=== PATIENT | female | born 1935 | race Caucasian/White ===

== ENCOUNTER → 2016-10-01 | Outpatient (CLI) | payer BC ==
[~2016-10-01] MED LIST: ANT125 PO; ASPCH81 PO; ENAL10TA88 PO; IBUP-1050 PO; PROP10TA7 PO; SYN100 PO
== END | disposition home or self-care (01) ==
LOC: C.PAPS 10:00
PROVIDERS: ATTEND Obstetrics & Gynecology
DX: Z01.419 Encounter for gynecological examination (general) (routine) without abnormal findings (principal)

== ENCOUNTER → 2017-05-21 | Outpatient (CLI) | payer BC ==
[2017-05-21 10:55] LABS: BASO % 0.4 %; BASO ABS # 0.02 K/uL (0-0.2); COMPLETE YES; EOS % 3.9 %; HEMATOCRIT 36.6 % (37-47); IG% 0.2 %; LYMPH ABS # 1.09 K/uL (1.2-3.4); MEAN CELL VOLUME 89.9 fL (80-100); MEAN CORPUSCULAR HEMOGLOBIN 30.5 pg (25-34); MEAN CORPUSCULAR HGB CONC 33.9 g/dl (32-36); MEAN PLATELET VOLUME 10.4 fL (7.4-10.4); MONO % 9.2 %; NEUT % 66.3 %; PLATELET COUNT 234 K/uL (130-400); RED BLOOD COUNT 4.07 M/uL (4.2-5.4); WHITE BLOOD COUNT 5.44 K/uL (4.8-10.8)
[2017-05-21 11:03] LABS: MANUAL MICROSCOPIC REQUIRED? NO; REVIEW REQ? NO; URINE APPEARANCE CLEAR (CLEAR); URINE BILIRUBIN NEG (NEG); URINE COLOR YELLOW; URINE EPITHELIAL CELL AUTO 20-30 /lpf (0-5); URINE NITRITE NEG (NEG); UROBILINOGEN NEG (NEG)
[2017-05-21 11:26] LABS: BLOOD UREA NITROGEN 16 mg/dl (7-18); BUN/CREATININE RATIO 13.6 (10-20); CALCIUM 9.1 mg/dl (8.5-10.1); CARBON DIOXIDE 26 mmol/L (21-32); CHLORIDE 107 mmol/L (98-107); GLUCOSE 114 mg/dl (70-99); POTASSIUM 3.8 mmol/L (3.5-5.1); SODIUM 139 mmol/L (136-145)
[2017-05-21 11:36] LABS: CHOLESTEROL 217 mg/dl (0-200); CHOLESTEROL/HDL RATIO 3.3; HDL CHOLESTEROL 65 mg/dl; LDL CHOLESTEROL CALCULATED 131 mg/dl; THYROID STIMULATING HORMONE 0.456 uIu/ml (0.300-4.500); TRIGLYCERIDES 103 mg/dl (0-150); VERY LOW DENSITY LIPOPROT CALC 21 mg/dl
[2017-05-21 11:52] LABS: ESTIMATED AVERAGE GLUCOSE 123 mg/dl; HA1C FLAG Normal (Normal)
--- NOTE | 2017-06-02 06:09 | CODING QUERY MEDICAL NECESSITY ---
SUPPORTING DIAGNOSIS NEEDED Dr. Stanton, A supporting diagnosis is required for the test/procedure performed on this patient in order for us to be reimbursed by the patient's insurance. Please provide a supporting diagnosis for the following test/procedure listed below next to the test name along with your signature. *If there is no additional diagnosis for this patient that would support the following test/procedure please document that below next to the test/procedure. Test(s)/Procedure(s) that require a supporting diagnosis: * 53269 GLYCATED HEMOGLOBIN DIAGNOSIS: DATE OF SERVICE: 05/21/17 Provider Signature: Date: Thank you Royce Orosco [facility] Information Management Once completed, please kindly fax back to [phone] For questions please call [phone]
== END | disposition home or self-care (01) ==
LOC: C.LABBC 08:38
PROVIDERS: ATTEND Internal Medicine
DX: I10 Essential (primary) hypertension (principal); R73.9 Hyperglycemia, unspecified

== ENCOUNTER → 2017-07-06 | Outpatient (CLI) | payer BC ==
--- NOTE | 2017-07-06 15:36 | MAMMOGRAPHY REPORT ---
BILATERAL DIGITAL SCREENING MAMMOGRAM WITH CAD: 07/06/2017 CLINICAL HISTORY: Routine screening examination. TECHNIQUE: Bilateral CC, MLO and repeat right MLO views were obtained. Current study was also evalua miki with a Computer Aided Detection (CAD) system. COMPARISON: Comparison is made to exams dated: 07/02/2016 mammogram, 06/28/2015 mammogram, 4 mammogram, 06/23/2013 mammogram, 06/22/2012 mammogram, and 05/26/2011 mammogram - [facility]. BREAST COMPOSITION: The tissue of both breasts is almost entirely fatty. FINDINGS: There are minimal vascular calcifications in both breasts. No suspicious mass, senior principal architect ural distortion or cluster of microcalcifications is seen. IMPRESSION: ACR BI-RADS CATEGORY 2: BENIGN There is no mammographic evidence of malignancy. A 1 year screening mammogram is recommended. The pa tient will receive written notification of the results. Approximately 10% of breast cancers are not detected with mammography. A negative mammographic report should not delay biopsy if a clinically suggestive mass is present. Noemi Moon M.D. ay/:07/06/2017 13:34:37 Crew Team Member: Esperanza FALCON(R)(M), [facility] letter sent: Normal 1/2 BI-RADS Code: ACR BI-RADS Category 2: Benign
== END | disposition home or self-care (01) ==
LOC: C.MAMM 10:46
PROVIDERS: ATTEND Obstetrics & Gynecology
DX: Z12.31 Encounter for screening mammogram for malignant neoplasm of breast (principal)

== ENCOUNTER → 2018-01-08 | Outpatient (CLI) | payer BC ==
[2018-01-08 13:45] LABS: BASO % 0.2 %; BASO ABS # 0.01 K/uL (0-0.2); EOS % 4.2 %; EOS ABS # 0.23 K/uL (0-0.5); HEMATOCRIT 38.8 % (37-47); HEMOGLOBIN 13.2 g/dL (12.0-16.0); IG# 0.01 K/uL (0.00-0.02); LYMPH % 21.4 %; LYMPH ABS # 1.17 K/uL (1.2-3.4); MEAN CELL VOLUME 90.7 fL (80-100); MEAN CORPUSCULAR HEMOGLOBIN 30.8 pg (25-34); MEAN PLATELET VOLUME 11.2 fL (7.4-10.4); MONO % 8.6 %; MONO ABS # 0.47 K/uL (0.11-0.59); NEUT % 65.4 %; NEUT ABS # 3.57 K/uL (1.4-6.5); PLATELET COUNT 247 K/uL (130-400); RED CELL DISTRIBUTION WIDTH SD 42.8 fL (36.4-46.3); WHITE BLOOD COUNT 5.46 K/uL (4.8-10.8)
[2018-01-08 14:02] LABS: HEMOGLOBIN A1C 5.7 % (4.5-5.6)
[2018-01-08 15:05] LABS: BLOOD UREA NITROGEN 25 mg/dl (7-18); CALCIUM 9.2 mg/dl (8.5-10.1); CARBON DIOXIDE 28 mmol/L (21-32); CREATININE 1.34 mg/dl (0.60-1.20); GLUCOSE 90 mg/dl (70-99); SODIUM 137 mmol/L (136-145)
== END | disposition home or self-care (01) ==
LOC: C.LABBC 10:41
PROVIDERS: ATTEND Internal Medicine
DX: I10 Essential (primary) hypertension (principal)

== ENCOUNTER 2024-09-19 09:38 | Inpatient (IN) ==
--- NOTE | 2024-09-19 09:49 | Emergency Department Note ---
Impression & Plan COVID-19, Weakness, Elevated troponin ED Provider Note Provider: Yagn King MD CHIEF COMPLAINT: Weakness, dizziness HISTORY OF PRESENT ILLNESS: Patient is a 89-year-old female past medical history of Parkinson's disease, CKD, hypothyroidism, and hypertension presenting here today via ambulance from her home. Lives with her son according to EMS. Last several days has been a bit weak but could not get out of recliner this morning. No falls reported. Patient reporting some dizziness but no significant headache or chest pain or abdominal pain. No nausea vomiting or diarrhea reported. Maybe some cough and cold symptoms reported. Patient quite drowsy on exam. PAST MEDICAL HISTORY: As noted above MEDICATIONS: Reviewed home medications SOCIAL HISTORY: Lives at home with son PHYSICAL EXAM: GENERAL: resting with eyes closed alert to verbal stimuli and oriented in no acute distress on stretcher Head: normocephalic and atraumatic EYES: No injection, discharge or icterus. PERRL, EOMI. NECK: Trachea midline. ENT: Mucous membranes pink and moist. LUNGS: Airway patent. No retractions. Breath sounds clear HEART: Regular rate and rhythm. No chest wall tenderness ABDOMEN: Soft and non-tender, without guarding or rebound. SKIN: Acyanotic, warm, dry, without rashes EXTREMITIES: Patient with 1+ lower extremity edema without significant erythema. No significant swelling of the upper extremities. NEUROLOGICAL: No focal deficits moves extremities to command. No aphasia. No facial droop or slurred speech. Normal strength and tone in the extremities. Sensation to gross touch normal. EK beats. Normal sinus rhythm. No PVC or PAC with left bundle branch block and QTc of 478. No significant acute ST segment elevation given left bundle branch block limitations. CONTINUOUS CARDIAC MONITORING: was ordered and showed a heart rate of bpm in Patient's laboratory studies and imaging reviewed. Differential includes Infection, dehydration, metabolic abnormality, hypo/hyperglycemia, electrolyte disturbance, anemia, hypoxia, cardiac sources, intracerebral event, toxicologic, neurologic, as well as other pathologies. IMPRESSION/MEDICAL DECISION MAKING: Patient appears significantly generally weak without focality. Some cold symptoms reported. Not hypoxic here. Given her age and the drowsiness will obtain a head CT as well as basic blood work and respiratory viral panel. Blood work here without significant leukocytosis. Stable mild anemia. Normal platelet count. No severe electrolyte abnormality with creatinine 1.25. Seems chronic in comparison to previous. Procalcitonin not significantly elevated. No transaminitis. Troponin is elevated at ~370. No priors for comparison. Unsure if this is chronic or demand with the patient denies chest pain. 1 view chest x-ray completed per my review and radiology without evidence of pneumonia, pneumothorax, or significant pulmonary edema. CT of the head here without acute intracranial bleed notable. Urinalysis without findings of infection. Respiratory viral panel shows positive COVID test. Likely explains much of her weakness and symptoms. Son later arrives. Updated. Patient without significant cardiac history reported it is reported be on low-dose aspirin. Evidently has had some slight cough and cold for a few days. Generally weak today. Patient has had COVID before but without hospitalization. Discussed with them staying for further supportive care. Not hypoxic at this point. Repeat troponin is pending. Discussed with the hospitalist team. DIAGNOSIS: Weakness, dizziness, elevated troponin, COVID-19 DISPOSITION: Hospitalist will evaluate Patient was agreeable with this plan. Past Med/Surg History Problem List (Updated 09/19/24 @ 12:01 by Yang King M.D.) Elevated troponin (Acute) Weakness (Acute) COVID-19 (Acute) Parkinsonism CKD (chronic kidney disease) stage 3, GFR 30-59 ml/min Pre-diabetes Anxiety Vitamin B 12 deficiency Vitamin D deficiency Essential tremor Impaired functional mobility, balance, gait, and endurance Lumbago with sciatica, left side Encounter for annual routine gynecological examination Benign essential tremor (Chronic) Acid reflux (Chronic) Back pain with sciatica (Chronic) Depression with anxiety (Chronic) Generalized osteoarthritis of multiple sites (Chronic) Hyperglycemia (Chronic) Hypertension (Chronic) Hypothyroidism (Chronic) Left bundle branch block (Chronic) Osteopenia (Chronic) 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) Medical History (Updated 09/19/24 @ 12:01 by Yang King M.D.) Skin cancer Surgical History History of cardiac cath 2015 Fracture, humerus 2015 - repair, plates/screws Hx of tonsillectomy Family History Father Coronary heart disease Stroke Dyslipidemia Hypertension Mother Cancer Social History Smoking Status: Never smoker Second Hand Exposure: No; Hx Alcohol Use: Yes Alcohol type: wine Alcohol Intake Frequency: 2-4 x/Month Hx Substance Use: No Preferred Language: Estonian Visual Impairment: Diminished Hearing Ability: Normal marital status: Current Living Situation: Spouse current occupational status: retired Feels Safe at Home: Yes Childhood Exposure to Second-Hand Smoke: No caffeine: Yes Dental Care, Regularly: Yes Physical Activity Frequency Comment: active lifestyle Seatbelt Use: always Sunscreen Use: No Do you think of yourself as: straight/heterosexual Allergies Allergies Allergy/AdvReac Type Severity Reaction Status Date / Time Sulfa (Sulfonamide Allergy Unknown RASH Verified 09/05/24 09:49 Antibiotics) codeine AdvReac Mild VOMITING Verified 09/05/24 09:49 Lobster AdvReac Unknown NAUSEA Uncoded 09/05/24 09:49 Home Meds Home Medications Medication Instructions Recorded Confirmed aspirin 81 mg tablet 81 mg PO DAILY 05/09/19 09/19/24 cholecalciferol (vitamin D3) 50 50 mcg PO UD 09/19/24 09/19/24 mcg (2,000 unit) capsule levothyroxine 75 mcg tablet 75 mcg PO UD 09/19/24 09/19/24 Previous Rx's Medication Instructions Recorded celecoxib 200 mg capsule (Celebrex) 200 mg PO DAILY #90 caps 02/05/24 hydrochlorothiazide 12.5 mg tablet 12.5 mg PO DAILY #90 tabs 05/18/24 pantoprazole 20 mg tablet,delayed 20 mg PO DAILY #90 tabs 05/25/24 release primidone 50 mg tablet 50 mg PO BID 90 days #180 tabs 08/08/24 enalapril maleate 5 mg tablet 5 mg PO DAILY #90 tabs 08/22/24 Results & Data (ED) Vital Signs Vital Signs - 24 hr 09/19/24 09:45 09/19/24 10:09 09/19/24 10:24 Temperature 36.5 C Temperature Source Oral Pulse Rate 66 60 60 Pulse Rate [Left Apical] Pulse Rate from SpO2 Sensor 61 60 Respiratory Rate 16 15 12 Respiratory Effort / Characteristics Non-Labored Spontaneous Respiratory Depth Normal Respiratory Pattern Agonal Blood Pressure 168/98 H Blood Pressure [Right Arm] Blood Pressure Mean 121 Blood Pressure Mean [Right Arm] Blood Pressure Position [Right Arm] Pulse Oximetry 99 97 98 Oxygen Delivery Method Room Air Sepsis Recent Fever Within 48 Hours No Sepsis New/Unexplained Change in Mental Status N/A Sepsis Action Taken by Nursing No Action Required 09/19/24 10:38 09/19/24 10:39 09/19/24 10:39 Temperature Temperature Source Pulse Rate 61 60 Pulse Rate [Left Apical] Pulse Rate from SpO2 Sensor 60 Respiratory Rate 15 Respiratory Effort / Characteristics Respiratory Depth Respiratory Pattern Blood Pressure 168/69 H Blood Pressure [Right Arm] Blood Pressure Mean 126 Blood Pressure Mean [Right Arm] Blood Pressure Position [Right Arm] Pulse Oximetry 99 Oxygen Delivery Method Sepsis Recent Fever Within 48 Hours Sepsis New/Unexplained Change in Mental Status Sepsis Action Taken by Nursing 09/19/24 11:00 09/19/24 11:12 09/19/24 11:15 Temperature Temperature Source Pulse Rate 61 Pulse Rate [Left Apical] 60 Pulse Rate from SpO2 Sensor Respiratory Rate 15 19 Respiratory Effort / Characteristics Non-Labored Spontaneous Respiratory Depth Normal Respiratory Pattern Regular Blood Pressure Blood Pressure [Right Arm] 166/62 H Blood Pressure Mean Blood Pressure Mean [Right Arm] 96 Blood Pressure Position [Right Arm] Semi-fowlers Pulse Oximetry 99 98 Oxygen Delivery Method Room Air Room Air Sepsis Recent Fever Within 48 Hours Sepsis New/Unexplained Change in Mental Status Sepsis Action Taken by Nursing 09/19/24 11:21 09/19/24 11:30 09/19/24 11:36 Temperature Temperature Source Pulse Rate 56 L 57 L Pulse Rate [Left Apical] Pulse Rate from SpO2 Sensor Respiratory Rate 12 12 Respiratory Effort / Characteristics Respiratory Depth Respiratory Pattern Blood Pressure 153/67 H Blood Pressure [Right Arm] Blood Pressure Mean 117 Blood Pressure Mean [Right Arm] Blood Pressure Position [Right Arm] Pulse Oximetry 98 98 Oxygen Delivery Method Room Air Room Air Sepsis Recent Fever Within 48 Hours Sepsis New/Unexplained Change in Mental Status Sepsis Action Taken by Nursing 09/19/24 11:42 09/19/24 12:00 09/19/24 12:12 Temperature Temperature Source Pulse Rate 63 57 L 59 L Pulse Rate [Left Apical] Pulse Rate from SpO2 Sensor Respiratory Rate 18 16 14 Respiratory Effort / Characteristics Respiratory Depth Respiratory Pattern Blood Pressure 153/64 H Blood Pressure [Right Arm] Blood Pressure Mean 93 Blood Pressure Mean [Right Arm] Blood Pressure Position [Right Arm] Pulse Oximetry 99 97 98 Oxygen Delivery Method Room Air Room Air Room Air Sepsis Recent Fever Within 48 Hours Sepsis New/Unexplained Change in Mental Status Sepsis Action Taken by Nursing Laboratory Data 09/19/24 09:50 09/19/24 09:50 Lab Results 09/19/24 09/19/24 Range/Units 09:50 10:40 WBC 6.80 (4.8-10.8) K/ul RBC 3.78 L (4.20-5.40) M/uL Hgb 11.6 L (12.0-16.0) g/dl Hct 33.7 L (37.0-47.0) % MCV 89.2 (80.0-100.0) fL MCH 30.7 (25.0-34.0) pg MCHC 34.4 (32.0-36.0) g/dL RDW Std Deviation 41.3 (36.4-46.3) fL RDW Coeff of Caesar 12.6 (11.5-14.5) % Plt Count 207 (130-400) K/uL MPV 10.8 (9.4-12.4) fL Immature Gran % (Auto) 0.3 % Neut % (Auto) 76.6 % Lymph % (Auto) 11.3 % [place] % (Auto) 9.3 % Eos % (Auto) 2.2 % Baso % (Auto) 0.3 % Neut # (Auto) 5.21 (1.40-6.50) K/uL Lymph # (Auto) 0.77 L (1.20-3.40) K/uL Cascade # (Auto) 0.63 H (0.11-0.59) K/uL Eos # (Auto) 0.15 (0.00-0.50) K/uL Baso # (Auto) 0.02 (0.00-0.20) K/uL Immature Gran # (Auto) 0.02 (0.01-0.20) K/uL PT 10.7 (9.0-12.0) Seconds INR 1.0 (0.9-1.1) Sodium 138 (136-145) mmol/L Potassium 4.0 (3.5-5.1) mmol/L Chloride 104 (98-107) mmol/L Carbon Dioxide 26 (21-32) mmol/L Anion Gap 8 (3-11) BUN 25 H (6-23) mg/dl Creatinine 1.25 H (0.6-1.2) mg/dl Est Cr Clr Drug Dosing 27.9 ml/min eGFR 41.46 BUN/Creatinine Ratio 20.0 (10-20) Glucose 117 H (70-99(Fasting)) mg/dl Calcium 9.5 (8.6-10.3) mg/dl Magnesium 2.0 (1.7-2.4) mg/dl Total Bilirubin 0.4 (0.2-1.0) mg/dl AST 16 (13-39) U/L ALT 10 (7-52) U/L Alkaline Phosphatase 103 (34-104) U/L Troponin I High Sens 369.4 H* (0-14) pg/ml Total Protein 7.4 (6.0-8.3) gm/dl Albumin 4.2 (3.4-5.0) gm/dl Globulin 3.2 (2.5-4.0) gm/dl Albumin/Globulin Ratio 1.3 (0.9-2) Procalcitonin 0.11 (0-0.5) ng/ml TSH 8.061 H (0.300-4.500) uIu/ml Free T4 0.79 (0.61-1.60) ng/dl Urine Color Yellow Urine Appearance Clear (Clear) Urine pH 5.5 (4.5-7.5) Ur Specific [place] 1.021 (1.000-1.030) Urine Protein Negative (Negative) Urine Glucose (UA) Negative (Negative) Urine Ketones Negative (Negative) Urine Blood Negative (Negative) Urine Nitrite Negative (Negative) Urine Bilirubin Negative (Negative) Urine Urobilinogen Negative (Negative) Ur Leukocyte Esterase Negative (Negative) Adenovirus (PCR) Not Detected (NotDetected) B. pertussis DNA (PCR) Not Detected (NotDetected) B.parapertussis DNA PCR Not Detected (NotDetected) C. pneumoniae DNA (PCR) Not Detected (NotDetected) Coronavirus OC43 (PCR) Not Detected (NotDetected) Coronavirus HKU1 (PCR) Not Detected (NotDetected) Coronavirus 229E (PCR) Not Detected (NotDetected) SARS-CoV-2 (PCR) DETECTED A (NotDetected) Coronavirus NL63 (PCR) Not Detected (NotDetected) Human Metapneumovir PCR Not Detected (NotDetected) Influenza Type A (PCR) Not Detected (NotDetected) Influenza Type B (PCR) Not Detected (NotDetected) M. pneumoniae (PCR) Not Detected (NotDetected) Parainfluenza 1 (PCR) Not Detected (NotDetected) Parainfluenza 2 (PCR) Not Detected (NotDetected) Parainfluenza 3 (PCR) Not Detected (NotDetected) Parainfluenza 4 (PCR) Not Detected (NotDetected) RSV (PCR) Not Detected (NotDetected) Entero/Rhino (PCR) Not Detected (NotDetected) Imaging Data Radiologist's Impression: Chest X-Ray 09/19/24 09:45 XR chest 1V portable CLINICAL HISTORY: weakness COMPARISON STUDY: Chest radiograph July 23, 2015. FINDINGS: A proximal right humeral internal fixation is again noted. There is no pneumothorax. Apparent blunting of the left costophrenic angle is likely due to patient rotation. Cardiomegaly is unchanged. There is no evidence for pulmonary edema. Linear right basilar densities represent atelectasis. No consolidation to suggest pneumonia. IMPRESSION: No acute cardiopulmonary findings. ACT 112: Negative or not required by law. Electronically signed by: Brad Green M.D. 09/19/2024 11:[address] 09/19/24 09:45 CT head/brain wo con CLINICAL HISTORY: weak, dizzy Technique: Contiguous axial CT images of the head were acquired from the base of the skull to the vertex without intravenous contrast administration. Images were viewed in brain, subdural and bone windows. Automated dose lowering techniques and/or adjustment according to patient size were utilized for this exam. Comparison: None available at the time of this dictation. Findings: Areas of decreased attenuation are present in the periventricular and subcortical white matter bilaterally consistent with small vessel ischemic disease. Generalized cerebral atrophy with commensurate enlargement of the ventricles, sulci, and cisterns is also present. There is no acute intracranial hemorrhage or evidence of acute territorial infarction. No shift of the midline structures, mass effect, or extra-axial abnormalities are shown. Atherosclerotic calcifications are present in the intracranial segments of the internal carotid arteries. Imaged portions of the paranasal sinuses and mastoid air cells are clear. The orbits appear normal. There are no acute fractures of the calvaria or scalp swelling. Impression: No acute intracranial hemorrhage, no evidence of acute territorial infarction or other acute intracranial disease process. ACT 112: Negative or not required by law. Electronically signed by: Alexi Go M.D. 09/19/2024 10:52 AM Discharge Plan Visit Data Chief Complaint: Illness Stated Complaint: ILLNESS ED Provider: Yang King Discharge Problem: COVID-19, Weakness, Elevated troponin Patient Disposition: Being Evaluated by Hospitalist Forms Stand Alone Forms: My [facility] Prescriptions Prescriptions: No Action hydrochlorothiazide 12.5 mg tablet 12.5 mg PO DAILY Qty: 90 3RF pantoprazole 20 mg tablet,delayed release (DR/EC) 20 mg PO DAILY Qty: 90 3RF enalapril maleate 5 mg tablet 5 mg PO DAILY Qty: 90 3RF aspirin 81 mg tablet 81 mg PO DAILY celecoxib [Celebrex] 200 mg capsule 200 mg PO DAILY Qty: 90 3RF primidone 50 mg tablet 50 mg PO BID 90 Days Qty: 180 3RF levothyroxine 75 mcg tablet 75 mcg PO UD Rx Instructions: 1 tab 4 days and 1/2 tab 3 days cholecalciferol (vitamin D3) 50 mcg (2,000 unit) capsule 50 mcg PO UD Rx Instructions: pt didnt seem to sure if she still takes vitamin D, last filled for 90 day supply on 07/22/24 Referrals Referrals: Taqueria Cazares CRNP [Primary Care Provider] -
[2024-09-19 10:13] LABS: Basophils # (auto) 0.02 K/uL (0.00-0.20); Basophils % (auto) 0.3 %; Eosinophils # (auto) 0.15 K/uL (0.00-0.50); Eosinophils % (auto) 2.2 %; Hematocrit (blood only) 33.7 % (37.0-47.0); Hemoglobin 11.6 g/dl (12.0-16.0); Immature Granulocytes # (auto) 0.02 K/uL (0.01-0.20); Immature Granulocytes % (auto) 0.3 %; Lymphocytes # (auto) 0.77 K/uL (1.20-3.40); Lymphocytes % (auto) 11.3 %; Mean Corpuscular Hemoglobin 30.7 pg (25.0-34.0); Mean Corpuscular Hgb Conc 34.4 g/dL (32.0-36.0); Mean Corpuscular Volume 89.2 fL (80.0-100.0); Mean Platelet Volume 10.8 fL (9.4-12.4); Monocytes # (auto) 0.63 K/uL (0.11-0.59); Monocytes % (auto) 9.3 %; Neutrophils # (auto) 5.21 K/uL (1.40-6.50); Neutrophils % (auto) 76.6 %; Platelet Count 207 K/uL (130-400); RDW Coefficient of Variation 12.6 % (11.5-14.5); RDW Standard Deviation 41.3 fL (36.4-46.3); Red Blood Count 3.78 M/uL (4.20-5.40)
[2024-09-19 10:25] LABS: Albumin Globulin Ratio 1.3 (0.9-2); Albumin Level 4.2 gm/dl (3.4-5.0); Bilirubin,Total 0.4 mg/dl (0.2-1.0); Calcium 9.5 mg/dl (8.6-10.3); Creatinine Clr Calc Pharmacy 27.9 ml/min; Globulin 3.2 gm/dl (2.5-4.0); Total Protein 7.4 gm/dl (6.0-8.3)
--- OUTSIDE RECORDS SUMMARY | 2024-09-19 10:32 | External Medical Summary | Summary of Care ---
Author Name Unknown Organization [facility] Address [address] [place] [address] Phone [phone] Care Team Providers Care Tacking Machine Operator Name Role Phone Loreetaran Taqueria Carol PATEL Primary Care Provider [phone] Reason for Referral * Evaluate & Treat - Unlimited Visits (Within 10 days (routine)) - Authorized Specialty Diagnoses / Procedures Referred By Marilyn cano Referred To Contact Urology Diagnoses Gross hematuria Ambika Preciado PA-C [address] [place] [address] Phone: tel: fax: Referral ID Status Reason Start Date Expiration Date Visits Requested Visits Authorized [id number] Authorized Specialty Services Required 4 999 999 Question Answer Referral Priority Within 10 days (routine) Where should this appointment be scheduled? [facility] What is the patient being referred for? Hematuria What is Hematuria condition? Gross * Precert (Within 10 days (routine)) - Pending Review Specialty Diagnoses / Procedures Referred By Marilyn cano Referred To Contact Radiology Diagnoses Gross hematuria Procedures CT UROGRAPHY W WO CONTRAST Ambika Preciado PA-C [address] [place] [address] Phone: tel: fax: Referral ID Status Reason Start Date Expiration Date V isits Requested Visits Authorized [id number] Pending Review 09/05/2024 1 1 Encounter Details Date Type Department Care Team (Late st Contact Info) Description 09/05/2024 Telephone Urogynecology Nanci Christopher [address] [place] [id number] Ambika Preciado PA-C [address] [place] [id number] Allergies Active Allergy Reactions Criticality Noted Date Comments Codeine Nausea/vomiting 02/21/2021 Sulfa Antibiotics 04/28/2017 documented as of this encounter (statuses as of 09/05/2024) Medications Aspirin 81 MG Tablet Take 1 Tablet by mouth in the morning. Active hydrochlorothia zide (HYDRODIURIL) 12.5 MG Capsule Take 1 Capsule by mouth in the morning. Active Levothyroxine Sodium 88 MCG Oral Tablet Take 1 Tablet by mouth daily first thing in the morning. (at least 30 min prior to breakfast or other meds) Active Pantoprazole Sodium 40 MG Oral Tablet Delayed Release Take 1 Tablet by mouth in the morning. Active Celecoxib 100 MG Oral Capsule Take 1 Capsule by mouth in the morning and 1 Capsule before bedtime. Active Enalapril Maleate 5 MG Oral Tablet (VASOTEC) Take 1 Tablet by mouth in the morning. Active Vitamin D3 50 MCG (2000 UT) Oral Capsule Take 1 Capsule by mouth in the morning. Active Mirabegron ER 25 MG Oral Tablet Extended Release 24 Hour (Myrbetriq) Take 1 Tablet by mouth in the morning. 30 Tablet 11 Active Additional Information Patient not taking.Reported on 09/02/2024 documented as of this encounter (statuses as of 09/05/2024) Active Problems No known active problems documented as of this encounter (statuses as of 09/05/2024) Social History Tobacco Use Types Packs/Day Years Used Date Smoking Tobacco: Never Smokeless Tobacco: Never Comments No Sex and Gender Information Value Date Recorded Sex Assigned at Not on file Legal Sex Female 6:02 AM EST Gender Identity Not on file Sexual Orientation Not on file documented as of this encounter Miscellaneous Notes * Telephone Encounter - Ambika Preciado PA-C - 09/05/2024 10:15 AM EST TC to patient, no answer. LMOM with callback number. Microscopic exam with many RBCs in urine. Urine culture negative for infection. Will order CT urography and referral to urology. Patient will need to schedule. She needs bloodwork completed prior to CT scan. Orders placed. documented in this encounter Plan of Treatment Scheduled Orders Name Type Priority Associated Diagnoses Orde r Schedule CT UROGRAPHY W WO CONTRAST Medical Imaging Routine Gross hematuria 1 Occurrences starting 09/05/2024 until 12/04/2024 CREATININE Lab Routine Gross hematuria 1 Occurrences starting 09/05/2024 until 12/04/2024 Scheduled Referrals Name Type Priority Associated Diagnoses Orde r Schedule ADULT/PEDS UROLOGY REFERRAL OP Referral Within 10 days (routine) Gross hematuria Ordered: 09/05/2024 Health Maintenance Due Date Last Done Comments DXA Scan 1936 Depression Screening 1948 TSH 1954 DTap/Tdap Vaccines (1 - Tdap) 1955 Zoster Vaccines (1 of 2) 1986 COVID-19 Vaccine (1 - 2023-2 5 season) 2024 Influenza Vaccine (FLU shot) (#1) 2024 06/24/2023, 07/18/2022, 07/11/2019 Pneumococcal Vaccine: 65+ Years Completed 06/24/2023 HPV (Gardasil) Vaccine Aged Out No lo nger eligible based on patient's age to complete this topic Hepatitis B Vaccine Aged Out No longe r eligible based on patient's age to complete this topic MENINGOCOCCAL (MENACTRA/MENVEO) Aged Out No longer eligible b ased on patient's age to complete this topic documented as of this encounter Medical Devices Not on filedocumented as of this encounter Visit Diagnoses Diagnosis Gross hematuria- Primary documented in this encounter Care Teams Tacking Machine Operator Relationship Specialty Start Date End Date Taqueria Cazares CRNP [address] [facility], [place] [address] PCP - General Nurse Practitioner 01/22/23 documented as of this encounter
--- OUTSIDE RECORDS SUMMARY | 2024-09-19 10:32 | External Medical Summary | Summary of Care ---
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 Name Role Phone Taqueria Cazares JORGE Primary Care Provider [phone] Reason for Referral * Evaluate & Treat - Unlimited Visits (Within 10 days (routine)) - Authorized Specialty Diagnoses / Procedures Referred By Marilyn cano Referred To Contact Urology Diagnoses Gross hematuria Ambika Preciado PA-C [address] [place] [address] Phone: tel: fax: Referral ID Status Reason Start Date Expiration Date Visits Requested Visits Authorized [id number] Authorized Specialty Services Required 4 999 999 [...] CONTRAST Ambika Preciado PA-C [address] [place] [address] Phone: tel: fax: Referral ID Status Reason Start Date Expiration Date V isits Requested Visits Authorized [id number] Pending Review 09/05/2024 1 1 Reason for Visit * Reason Onset Date Comments Advice 09/05/2024 Encounter Details Date Type Department Care Team (Late st Contact Info) Description 09/05/2024 Telephone Urogynecology Nanci Christopher [address] [place] [address] Ambika Preciado PA-C [address] [place] [address] Advice Allergies Active Allergy Reactions Criticality Noted Date [...] encounter Miscellaneous Notes * Telephone Encounter - Karen Mejia LPN - 09/05/2024 12:32 PM EST Provider sent TE that pt had many RBCs in urine and neg for infection. Advised that pt will need CTurography with a referral placed to urology. Pt will need blood work prior to CT scan; provider placed orders. Call placed to pt to advise. No answer. LM on VM with CB# provided. * Telephone Encounter - Ambika Preciado PA-C [...] Vaccines (1 of 2) 1986 COVID-19 Vaccine ( - 2023-2 5 season) 2024 Influenza Vaccine [...] Primary documented in this encounter Care Teams Plastic Sheets Finishing Supervisor Relationship Specialty Start Date End Date Taqueria Cazares CRNP [address] [place] [address] PCP - General Nurse Practitioner 01/22/23 documented as of this encounter
[2024-09-19 10:35] LABS: Prothrombin Time 10.7 Seconds (9.0-12.0); Troponin I High Sensitivity 369.4 pg/ml (0-14)
[2024-09-19 10:41] LABS: Thyroid Stimulating Hormone 8.061 uIu/ml (0.300-4.500)
--- NOTE | 2024-09-19 10:53 | CT Scan Report ---
CT head/brain wo con CLINICAL HISTORY: weak, dizzy Technique: Contiguous axial CT images of the head were acquired from the base of the skull to the christopher hiram without intravenous contrast administration. Images were viewed in brain, subdural and [facility]. Automated dose lowering techniques and/or adjustment according to patient size were utilized for this exam. Comparison: None available at the time of this dictation. Findings: Areas of decreased attenuation are present in the periventricular and subcortical white matter bilate rally consistent with small vessel ischemic disease. Generalized cerebral atrophy with commensurate e nlargement of the ventricles, sulci, and cisterns is also present. There is no acute intracranial hem orrhage or evidence of acute territorial infarction. No shift of the midline structures, mass effect, or extra-axial abnormalities are shown. Atherosclerotic calcifications are present in the intracran ial segments of the internal carotid arteries. Imaged portions of the paranasal sinuses and mastoid air cells are clear. The orbits appear normal. There are no acute fractures of the calvaria or scalp swelling. Impression: No acute intracranial hemorrhage, no evidence of acute territorial infarction or other acute intracra nial disease process. ACT 112: Negative or not required by law. Electronically signed by: Alexi Go M.D. 09/19/2024 10:52 AM
[2024-09-19 10:56] LABS: Appearance Urine Clear (Clear); Bilirubin Urine Negative (Negative); Blood Urine Negative (Negative); Color Urine Yellow; Glucose Urine UA Negative (Negative); Ketones Urine Negative (Negative); Leukocyte Esterase Urine Negative (Negative); Nitrite Urine Negative (Negative); Protein Urine Negative (Negative); Specific Gravity Urine 1.021 (1.000-1.030); Urobilinogen Urine Negative (Negative); pH Urine 5.5 (4.5-7.5)
[2024-09-19 10:59] LABS: Adenovirus PCR Not Detected (NotDetected); Bordetella parapertussis PCR Not Detected (NotDetected); Bordetella pertussis PCR Not Detected (NotDetected); Chlamydia pneumoniae PCR Not Detected (NotDetected); Coronavirus 229E PCR Not Detected (NotDetected); Coronavirus CoV-2 (COVID19)PCR DETECTED (NotDetected); Coronavirus HKU1 PCR Not Detected (NotDetected); Coronavirus NL63 PCR Not Detected (NotDetected); Coronavirus OC43PCR Not Detected (NotDetected); Human Metapneumovirus PCR Not Detected (NotDetected); Influenza A PCR Not Detected (NotDetected); Influenza B PCR Not Detected (NotDetected); Mycoplasma pneumoniae PCR Not Detected (NotDetected); Parainfluenza Virus 1 PCR Not Detected (NotDetected); Parainfluenza Virus 2 PCR Not Detected (NotDetected); Parainfluenza Virus 3 PCR Not Detected (NotDetected); Parainfluenza Virus 4 PCR Not Detected (NotDetected); Respiratory Syncytial VirusPCR Not Detected (NotDetected); Rhinovirus/Enterovirus PCR Not Detected (NotDetected)
[2024-09-19 11:16] LABS: T4 Free Thyroxine 0.79 ng/dl (0.61-1.60)
--- NOTE | 2024-09-19 11:18 | XRay Report ---
XR chest 1V portable CLINICAL HISTORY: weakness COMPARISON STUDY: Chest radiograph July 23, 2015. FINDINGS: A proximal right humeral internal fixation is again noted. There is no pneumothorax. Appare nt blunting of the left costophrenic angle is likely due to patient rotation. Cardiomegaly is unchang ed. There is no evidence for pulmonary edema. Linear right basilar densities represent atelectasis. N o consolidation to suggest pneumonia. IMPRESSION: No acute cardiopulmonary findings. ACT 112: Negative or not required by law. Electronically signed by: Brad Green M.D. 09/19/2024 11:16 AM
--- NOTE | 2024-09-19 12:12 | History & Physical Report ---
Date of Service September 19, 2024 Assessment & Plan (1) Weakness: Plan: Uses occasional walker at baseline was unable to get up out of recliner chair 09/19 and called EMS suspect 2/2 to COVID - COVID positive on BioFire - UA negative - TSH WNL given age - Head CT negative - PT/OT consulted - fall and aspiration precautions (2) COVID-19: Plan: COVID 19 diagnosed on admission biofire - no leukopenia or leukocytosis - CXR negative - non-hypoxic - incentive spirometry Q1H - solumedrol 40 Iv q8H - gentle Iv fluid resuscitation NSS x1 bag - continue home Vit D3 (3) Elevated troponin: Plan: 369.4 -> 318.7 trend trop EKG NSR, 1st degree AV block MO 212 denies cp monitor on tele (4) Hypothyroidism: Plan: TSH mildly elevated on admission, 8.001 - WNL given age T4 WNL continue levothyroxine (5) Parkinsonism: Plan: continue primidone, recently increased to BID (6) CKD (chronic kidney disease) stage 3, GFR 30-59 ml/min: Plan: renal function stable - Cr 1.25 avoid nephrotoxic agents (7) Hypertension: Plan: continue enalapril and HCTZ Plan Patient is 89 y/o female with a PMHx of Parkinsons dz, CKD, hypothyroidism, htn. She presents today due to weakness. She was found to be COVID positive and has an elevated troponin but low concern for ACS at this time. Is being admitting for ambulatory dysfunction and cardiac monitoring. Chronic stable diagnoses: GERD - continue PPI urge incontinence - not on any pharmacologic management at this time VTE ppx: Heparin Diet: heart healthy Dispo: med/tele Admission and Anticipated Discharge Date Admission Date: 09/19/23 History of Present Illness Chief Complaint: illness Primary Care Provider: JORGE Ocasio Patient is 89 y/o female with a PMHx of Parkinsons dz, CKD, hypothyroidism, htn. She presents today due to weakness. She was found to be COVID positive and has an elevated troponin but low concern for ACS at this time. Is being admitting for ambulatory dysfunction and cardiac monitoring. Patient seen at bedside, lethargic. She responds to verbal stimuli. She stated that she has felt weak since last night, she cannot get out of her recliner this morning. She denies any falls. She stated she has also been dizzy since last night. She also endorses sore throat since yesterday. She does feel fatigued today. She denies any chest pain. Patient denies fever, chills, rhinorrhea, cough, sputum production, dyspnea, dyspnea on exertion, chest pain, abdominal pain, nausea, vomiting, diarrhea. She states she does not regularly exercise. She denies nicotine use. She denies past medical history of diabetes, previous VTE, previous CT. She lives at home with her son. She stated she cannot remember if she took her home medications this morning. She wishes to be full code at this time. Spoke with patient's son on the phone, he will be coming in this afternoon. He stated he has noticed that she has been sick for couple days and suspected something is going on. She did take a home COVID test yesterday which was negative. He stated he believes she did not take her home medications last night or this morning. Allergies Allergy/AdvReac Type Severity Reaction Status Date / Time Sulfa (Sulfonamide Allergy Unknown RASH Verified 09/05/24 09:49 Antibiotics) codeine AdvReac Mild VOMITING Verified 09/05/24 09:49 Lobster AdvReac Unknown NAUSEA Uncoded 09/05/24 09:49 Home Medications Medication Instructions Recorded Confirmed Type aspirin 81 mg tablet 81 mg PO DAILY 05/09/19 09/19/24 History celecoxib 200 mg capsule (Celebrex) 200 mg PO DAILY #90 caps 02/05/24 09/19/24 Rx hydrochlorothiazide 12.5 mg tablet 12.5 mg PO DAILY #90 tabs 05/18/24 09/19/24 Rx pantoprazole 20 mg tablet,delayed 20 mg PO DAILY #90 tabs 05/25/24 09/19/24 Rx release primidone 50 mg tablet 50 mg PO BID 90 days #180 tabs 08/08/24 09/19/24 Rx enalapril maleate 5 mg tablet 5 mg PO DAILY #90 tabs 08/22/24 09/19/24 Rx cholecalciferol (vitamin D3) 50 50 mcg PO UD 09/19/24 09/19/24 History mcg (2,000 unit) capsule levothyroxine 75 mcg tablet 75 mcg PO UD 09/19/24 09/19/24 History Past Med/Surg History Problem List (Updated 09/19/24 @ 12:01 by Yang King M.D.) Elevated troponin (Acute) Weakness (Acute) COVID-19 (Acute) Parkinsonism CKD (chronic kidney disease) stage 3, GFR 30-59 ml/min Pre-diabetes Anxiety Vitamin B 12 deficiency Vitamin D deficiency Essential tremor Impaired functional mobility, balance, gait, and endurance Lumbago with sciatica, left side Encounter for annual routine gynecological examination Benign essential tremor (Chronic) Acid reflux (Chronic) Back pain with sciatica (Chronic) Depression with anxiety (Chronic) Generalized osteoarthritis of multiple sites (Chronic) Hyperglycemia (Chronic) Hypertension (Chronic) Hypothyroidism (Chronic) Left bundle branch block (Chronic) Osteopenia (Chronic) 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) Medical History (Updated 09/19/24 @ 12:01 by Yang King M.D.) Skin cancer Surgical History History of cardiac cath 2015 Fracture, humerus 2014 - repair, plates/screws Hx of tonsillectomy Family History Father Coronary heart disease Stroke Dyslipidemia Hypertension Mother Cancer Social History Smoking Status: Never smoker Second Hand Exposure: No; Hx Alcohol Use: Yes Alcohol type: wine Alcohol Intake Frequency: 2-4 x/Month Hx Substance Use: No Preferred Language: Pashto Visual Impairment: Diminished Hearing Ability: Normal marital status: Current Living Situation: Spouse current occupational status: retired Feels Safe at Home: Yes Childhood Exposure to Second-Hand Smoke: No caffeine: Yes Dental Care, Regularly: Yes Physical Activity Frequency Comment: active lifestyle Seatbelt Use: always Sunscreen Use: No Do you think of yourself as: straight/heterosexual Review of Systems Review of Systems: see HPI Physical Exam Physical Exam: The patient is lethargic, responds to verbal stimuli, alert and oriented 3, well developed and well nourished, normocephalic and atraumatic, in no acute distress. Non-toxic appearing. HEENT- EOMI, mucous membranes dry. Hearing grossly intact. Heart-normal S1 and S2. No murmurs, rubs or gallops. Lungs-clear bilaterally, no respiratory distress, no accessory muscle use. Abdomen-normal bowel sounds and soft. No ascites noted. Non-tender. Extremities- no clubbing, cyanosis, or edema. Rheumatologic-normal range of motion. Psychiatric-normal affect. Results & Data Results & Data Vital Signs (Past 12 Hours) Vital Signs Temp Pulse Pulse Resp BP BP Pulse Ox 09/19/24 11:12 60 15 99 09/19/24 11:00 166/62 H 09/19/24 10:39 60 15 99 09/19/24 10:39 61 09/19/24 10:38 168/69 H 09/19/24 10:24 60 12 98 09/19/24 10:09 60 15 97 09/19/24 09:45 36.5 C 66 16 168/98 H 99 O2 Del Method 09/19/24 11:12 Room Air 09/19/24 11:00 09/19/24 10:39 09/19/24 10:39 09/19/24 10:38 09/19/24 10:24 09/19/24 10:09 09/19/24 09:45 Room Air Laboratory Results Reviewed CBC, CMP,, bio fire, UA Diagnostic Findings reviewed CXR and head CT Medications Administered none in ED Code Status & VTE Plan Code Status full code VTE Prophylaxis Plan VTE Prophylaxis will be ordered: Yes Supervising Physician Co-Signing Physician Notes The patient was not seen by me. The chart was reviewed. Case discussed with [place]. Agree with assessment and plan PG Care Time/CCT Total # of Minutes Spent Total Time Spent with Patient: Total time spent is greater than 50% in coordination of care (as documented) at patient's floor/unit and/or counseling patient: Coding Level of Care Code 40301 INT INP/OBS CARE 3/75MIN Diagnoses Weakness R53.1 COVID-19 U07.1 Elevated troponin R79.89 Hypothyroidism E03.9 Parkinsonism G20.C CKD (chronic kidney disease) stage 3, GFR 30-59 ml/min N18.30 Hypertension I10
[2024-09-19] MEDS: SODIUM CHLORIDE 0.9% 1,000 ML IV SCH (13:12)
[2024-09-19] MEDS: methylPREDNISolone 125 MG/2 ML VIAL IV ONE (13:12)
[2024-09-19] MEDS ORDERED: ACETAMINOPHEN 325 MG TAB PO PRN (15:15)
[2024-09-19] MEDS: ENALAPRIL MALEATE 5 MG TAB PO SCH (16:25)
[2024-09-19] MEDS: PRIMIDONE 50 MG TAB PO SCH (16:25)
[2024-09-19] MEDS: PANTOprazole 40 MG TAB PO SCH (16:25)
[2024-09-19] MEDS: ASPIRIN 81 MG ECTAB PO SCH (16:25)
[2024-09-19] MEDS: CHOLECALCIFEROL 25 MCG (1000 UNITS) TAB PO SCH (16:25)
[2024-09-19] MEDS ORDERED: methylPREDNISolone 125 MG/2 ML VIAL IV SCH (21:00)
[2024-09-19] MEDS: methylPREDNISolone 40 MG in SYRINGE 0 ML IV SCH (22:04)
[2024-09-19] MEDS: HEPARIN SOD 5,000 UNIT/0.5 ML VIAL SQ SCH (22:04)
--- NOTE | 2024-09-20 05:50 | Electrocardiogram Report ---
Test Reason : Blood Pressure : */* mmHG Vent. Rate : 58 BPM Atrial Rate : 58 BPM P-R Int : 182 ms QRS Dur : 126 ms QT Int : 454 ms P-R-T Axes : 55 -40 92 degrees QTcB Int : 445 ms Sinus bradycardia Left axis deviation Left bundle branch block Abnormal ECG When compared with ECG of 21-May-2008 10:51, No significant change Confirmed by Chuck Cunningham ([id number]) on 09/20/2024 5:50:05 AM Referred By: REFERRED SELF Confirmed By: Chuck Cunningham
[2024-09-20 06:40] LABS: Basophils # (auto) 0.01 K/uL (0.00-0.20); Basophils % (auto) 0.2 %; Hematocrit (blood only) 31.5 % (37.0-47.0); Hemoglobin 10.6 g/dl (12.0-16.0); Immature Granulocytes # (auto) 0.03 K/uL (0.01-0.20); Immature Granulocytes % (auto) 0.7 %; Lymphocytes % (auto) 15.3 %; Mean Corpuscular Hemoglobin 30.4 pg (25.0-34.0); Mean Corpuscular Hgb Conc 33.7 g/dL (32.0-36.0); Mean Corpuscular Volume 90.3 fL (80.0-100.0); Mean Platelet Volume 10.7 fL (9.4-12.4); Monocytes % (auto) 4.4 %; Neutrophils # (auto) 3.64 K/uL (1.40-6.50); Neutrophils % (auto) 79.4 %; Platelet Count 199 K/uL (130-400); RDW Coefficient of Variation 12.3 % (11.5-14.5); RDW Standard Deviation 40.6 fL (36.4-46.3); Red Blood Count 3.49 M/uL (4.20-5.40); White Blood Count 4.58 K/ul (4.8-10.8)
[2024-09-20 07:03] LABS: BUN Creatinine Ratio 20.9 (10-20); Calcium 8.8 mg/dl (8.6-10.3); Creatinine Clr Calc Pharmacy 30.4 ml/min; Potassium 4.8 mmol/L (3.5-5.1)
--- NOTE | 2024-09-20 07:06 | Electrocardiogram Report ---
Test Reason : Blood Pressure : */* mmHG Vent. Rate : 64 BPM Atrial Rate : 64 BPM P-R Int : 172 ms QRS Dur : 130 ms QT Int : 464 ms P-R-T Axes : 58 -29 90 degrees QTcB Int : 478 ms Normal sinus rhythm Possible Left atrial enlargement Left bundle branch block Abnormal ECG When compared with ECG of 21-May-2008 10:51, Left bundle branch block is now Present Confirmed by Chuck Cunningham ([id number]) on 09/20/2024 7:06:34 AM Referred By: REFERRED SELF Confirmed By: Chuck Cunningham
[2024-09-20] MEDS: hydroCHLOROthiazide 25 MG TAB PO SCH (08:11)
[2024-09-20] MEDS: LEVOTHYROXINE SODIUM 75 MCG TABLET PO SCH (08:11)
--- NOTE | 2024-09-20 13:26 | XCELERA ---
[id number] \\[id number]
--- NOTE | 2024-09-20 15:50 | Hospitalist Progress Note ---
Date of Service September 20, 2024 Assessment & Plan (1) Weakness: Plan: Continue OT and PT. Treating viral illness with parenteral steroid therapy. OT and PT has been ordered. (2) COVID-19: Plan: Positivity by nasal swab. She has a viral illness but uncertain if it is actually a coronavirus or not. Continue parenteral steroid therapy. Continue OT and PT. Oral and take is adequate now and IV fluids have been discontinued (3) Elevated troponin: Plan: Cardiac echo reveals normal left ventricular wall motion and ejection fraction. No evidence of acute coronary syndrome. (4) Hypothyroidism: Plan: TSH mildly elevated on admission with normal free T4. Continue current levothyroxine dosage (5) Parkinsonism: Plan: Stable. Continue current medical management (6) CKD (chronic kidney disease) stage 3, GFR 30-59 ml/min: Plan: Stable. Monitor intake and output. Serial labs (7) Hypertension: Plan: Stable. Continue enalapril. Diuretic is currently on hold Plan It appears she will need SNF or IPR placement at discharge later this week. Admission and Anticipated Discharge Date Admission Date: September 19, 2024 Subjective More alert today but still very weak. She is eating much better and IV fluids have been discontinued. Cardiac echo reveals normal ejection fraction with no regional wall motion abnormalities. Troponin is downtrending but there is no sign of acute coronary syndrome. I spoke to her daughter, Nel, by phone. It appears she will need halfway or IPR placement at discharge sometime later this week. She is currently on parenteral steroid therapy. Review of Systems 2 Review of Systems: Constitutionalno fever or chills ENTno blurred vision, no double vision, no epistaxis, no sore throat Respiratoryno cough, no wheezing, no shortness of breath Cardiacno palpitations, no chest pain, no syncope Cherie nausea, vomiting, diarrhea, melena, hematochezia GUno urinary retention, no urinary incontinence, no dysuria, no hematuria Musculoskeletalno joint pain, no muscle tenderness Skinno bruising, no rashes, no pruritus Neurogeneralized weakness. Nothing focal Psychno depression, no anxiety Physical Exam 2 Physical Exam: General-alert and oriented x3, no fever, no chills HEENT-head atraumatic and normocephalic, pupils equal and reactive to light, extraocular muscles intact Neck-no lymphadenopathy or thyromegaly, trachea midline Chest-clear to auscultation. No rales, wheezing or rhonchi Cardiac-regular rate and rhythm, normal S1 and S2 Abdomen-normal bowel sounds, no hepatosplenomegaly Extremities-no cyanosis, clubbing, or edema Neuro-cranial nerves II through XII intact, motor and sensory function within normal limits, strength symmetrical with generalized weakness, no focal deficits Psych-flat affect Results & Data Results & Data Vital Signs (Past 12 Hours) Vital Signs Temp Pulse Pulse Resp BP BP Pulse Ox 09/20/24 11:58 09/20/24 11:46 36.7 C 69 18 160/96 H 98 09/20/24 10:32 151/34 H 09/20/24 10:21 64 15 09/20/24 10:09 62 14 09/20/24 09:31 151/84 H 09/20/24 09:27 73 14 09/20/24 09:03 58 L 22 09/20/24 09:00 150/77 H 09/20/24 08:57 56 L 14 09/20/24 08:30 168/82 H 09/20/24 08:21 97 H 16 09/20/24 08:00 161/69 H 09/20/24 08:00 48 L 13 96 09/20/24 07:31 50 L 09/20/24 07:30 52 L 15 97 09/20/24 07:30 151/74 H 09/20/24 07:09 48 L 18 97 09/20/24 06:54 49 L 16 153/69 H 98 Pulse Ox O2 Del Method O2 Flow Rate 09/20/24 11:58 95 0 09/20/24 11:46 Room Air 09/20/24 10:32 09/20/24 10:21 09/20/24 10:09 09/20/24 09:31 09/20/24 09:27 09/20/24 09:03 09/20/24 09:00 09/20/24 08:57 09/20/24 08:30 09/20/24 08:21 09/20/24 08:00 09/20/24 08:00 09/20/24 07:31 09/20/24 07:30 09/20/24 07:30 09/20/24 07:09 09/20/24 06:54 Room Air Laboratory Results 09/20/24 06:06 09/20/24 06:06 PG Care Time/CCT Total # of Minutes Spent Total Time Spent with Patient: Total time spent is greater than 50% in coordination of care (as documented) at patient's floor/unit and/or counseling patient: Coding Level of Care Code 87360 SUB INP/OBS CARE 2/35MIN Diagnoses Weakness R53.1 COVID-19 U07.1 Elevated troponin R79.89 Hypothyroidism E03.9 Parkinsonism G20.C CKD (chronic kidney disease) stage 3, GFR 30-59 ml/min N18.30 Hypertension I10
--- NOTE | 2024-09-21 13:58 | Hospitalist Progress Note ---
Date of Service September 21, 2024 Assessment & Plan (1) Weakness: Plan: Continue OT and PT. Treating viral illness with parenteral steroid therapy while hospitalized. Oral prednisone tapering dose at discharge. OT recommends IPR placement at discharge. PT recommendations pending. (2) COVID-19: Plan: Positivity by nasal swab. She has a viral illness but uncertain if it is actually a coronavirus or not. Continue parenteral steroid therapy while hospitalized. Prednisone oral tapering dose at discharge. (3) Elevated troponin: Plan: Cardiac echo reveals normal left ventricular wall motion and ejection fraction. No evidence of acute coronary syndrome. (4) Hypothyroidism: Plan: TSH mildly elevated on admission with normal free T4. Continue current levothyroxine dosage (5) Parkinsonism: Plan: Stable. Continue current medical management (6) CKD (chronic kidney disease) stage 3, GFR 30-59 ml/min: Plan: Stable. Monitor intake and output. Serial labs (7) Hypertension: Plan: Stable. Continue enalapril. Diuretic is currently on hold Plan It appears she will need SNF or IPR placement at discharge. She is medically stable for discharge as soon as tomorrow, September 22 Admission and Anticipated Discharge Date Admission Date: September 19, 2024 Subjective Awake and alert. Mental status continues to improve. Day 3 of parenteral steroid therapy. Cardiac echo reveals no regional wall motion abnormalities. Troponin was elevated on admission without acute coronary syndrome. Occupational therapy has recommended inpatient rehab at discharge. Case management has been requested to arrange placement at discharge. Review of Systems 2 Review of Systems: Constitutionalno fever or chills ENTno blurred vision, no double vision, no epistaxis, no sore throat Respiratoryno cough, no wheezing, no shortness of breath Cardiacno palpitations, no chest pain, no syncope Cherie nausea, vomiting, diarrhea, melena, hematochezia GUno urinary retention, no urinary incontinence, no dysuria, no hematuria Musculoskeletalno joint pain, no muscle tenderness Skinno bruising, no rashes, no pruritus Neurogeneralized weakness. Nothing focal Psychno depression, no anxiety Physical Exam 2 Physical Exam: General-alert and oriented x3, no fever, no chills HEENT-head atraumatic and normocephalic, pupils equal and reactive to light, extraocular muscles intact Neck-no lymphadenopathy or thyromegaly, trachea midline Chest-clear to auscultation. No rales, wheezing or rhonchi Cardiac-regular rate and rhythm, normal S1 and S2 Abdomen-normal bowel sounds, no hepatosplenomegaly Extremities-no cyanosis, clubbing, or edema Neuro-cranial nerves II through XII intact, motor and sensory function within normal limits, strength symmetrical with generalized weakness, no focal deficits Psych-flat affect Results & Data Results & Data Vital Signs (Past 12 Hours) Vital Signs Temp Pulse Pulse Resp BP Pulse Ox O2 Del Method 09/21/24 11:42 36.4 C L 75 20 140/70 97 Room Air 09/21/24 08:26 36.6 C 60 16 167/78 H 95 Room Air 09/21/24 05:45 68 09/21/24 03:23 36.8 C 62 18 150/75 H 95 Room Air Laboratory Results 09/20/24 06:06 09/20/24 06:06 PG Care Time/CCT Total # of Minutes Spent Total Time Spent with Patient: Total time spent is greater than 50% in coordination of care (as documented) at patient's floor/unit and/or counseling patient: Coding Level of Care Code 87714 SUB INP/OBS CARE 2/35MIN Diagnoses Weakness R53.1 COVID-19 U07.1 Elevated troponin R79.89 Hypothyroidism E03.9 Parkinsonism G20.C CKD (chronic kidney disease) stage 3, GFR 30-59 ml/min N18.30 Hypertension I10
[2024-09-22] MEDS: DOCUSATE SODIUM 100 MG CAP PO PRN (08:07)
[2024-09-22] MEDS: predniSONE 10 MG TABLET PO SCH (13:45)
--- NOTE | 2024-09-22 13:53 | Hospitalist Progress Note ---
Date of Service September 22, 2024 Assessment & Plan (1) Weakness: Plan: Much improved since admission. Continue OT and PT. Treating viral illness with steroid therapy. Oral prednisone tapering dose at discharge. OT and PT recommends rehab placement at discharge. (2) COVID-19: Plan: Positivity by nasal swab. She has a viral illness but uncertain if it is actually a coronavirus or not. Continue steroid therapy . Prednisone oral tapering dose at discharge. (3) Elevated troponin: Plan: Cardiac echo reveals normal left ventricular wall motion and ejection fraction. No evidence of acute coronary syndrome. (4) Hypothyroidism: Plan: TSH mildly elevated on admission with normal free T4. Continue current levothyroxine dosage (5) Parkinsonism: Plan: Stable. Continue current medical management (6) CKD (chronic kidney disease) stage 3, GFR 30-59 ml/min: Plan: Stable. Monitor intake and output. Serial labs (7) Hypertension: Plan: Stable. Continue enalapril. Diuretic is currently on hold. I doubt if she actually needs the diuretic since she has no past history of congestive heart failure Plan SNF placement at either [facility] or [facility] when arrangements are finalized. She is medically stable for discharge. Admission and Anticipated Discharge Date Admission Date: September 19, 2024 Subjective The patient is awake and alert now and oriented. Son is at the bedside. Parenteral steroid therapy switched to oral prednisone dosing. Placement is pending at either [facility] or [facility]. Cardiac echo reveals no regional wall motion abnormalities. Troponin is elevated without any evidence of acute coronary syndrome. Review of Systems 2 Review of Systems: Constitutionalno fever or chills ENTno blurred vision, no double vision, no epistaxis, no sore throat Respiratoryno cough, no wheezing, no shortness of breath Cardiacno palpitations, no chest pain, no syncope Cherie nausea, vomiting, diarrhea, melena, hematochezia GUno urinary retention, no urinary incontinence, no dysuria, no hematuria Musculoskeletalno joint pain, no muscle tenderness Skinno bruising, no rashes, no pruritus Neurogeneralized weakness. Nothing focal Psychno depression, no anxiety Physical Exam 2 Physical Exam: General-alert and oriented x3, no fever, no chills HEENT-head atraumatic and normocephalic, pupils equal and reactive to light, extraocular muscles intact Neck-no lymphadenopathy or thyromegaly, trachea midline Chest-clear to auscultation. No rales, wheezing or rhonchi Cardiac-regular rate and rhythm, normal S1 and S2 Abdomen-normal bowel sounds, no hepatosplenomegaly Extremities-no cyanosis, clubbing, or edema Neuro-cranial nerves II through XII intact, motor and sensory function within normal limits, strength symmetrical with generalized weakness, no focal deficits Psych-flat affect Results & Data Results & Data Vital Signs (Past 12 Hours) Vital Signs Temp Pulse Pulse Resp BP Pulse Ox O2 Del Method 09/22/24 12:08 36.3 C L 58 L 18 128/68 97 Room Air 09/22/24 08:05 Room Air 09/22/24 07:50 36.5 C 58 L 20 161/74 H 97 Room Air 09/22/24 07:00 52 L 09/22/24 03:34 36.8 C 66 18 132/64 95 Room Air Laboratory Results 09/20/24 06:06 09/20/24 06:06 PG Care Time/CCT Total # of Minutes Spent Total Time Spent with Patient: Total time spent is greater than 50% in coordination of care (as documented) at patient's floor/unit and/or counseling patient: Coding Level of Care Code 42487 SUB INP/OBS CARE 2/35MIN Diagnoses Weakness R53.1 COVID-19 U07.1 Elevated troponin R79.89 Hypothyroidism E03.9 Parkinsonism G20.C CKD (chronic kidney disease) stage 3, GFR 30-59 ml/min N18.30 Hypertension I10
[2024-09-23] MEDS: LEVOTHYROXINE SODIUM 75 MCG TABLET PO SCH (05:42)
--- NOTE | 2024-09-23 14:40 | Hospitalist Progress Note ---
Date of Service September 23, 2024 Assessment & Plan (1) Weakness: Plan: Much improved since admission. Continue OT and PT. Treating viral illness with steroid therapy. Oral prednisone dosage tapered down today, September 23. OT and PT recommends rehab placement at discharge. (2) COVID-19: Plan: Positivity by nasal swab. She has a viral illness but uncertain if it is actually a coronavirus or not. Continue steroid therapy . Prednisone oral tapering dose at discharge. In my opinion, she does not need isolation precautions (3) Elevated troponin: Plan: Cardiac echo reveals normal left ventricular wall motion and ejection fraction. No evidence of acute coronary syndrome. (4) Hypothyroidism: Plan: TSH mildly elevated on admission with normal free T4. Continue current levothyroxine dosage (5) Parkinsonism: Plan: Stable. Continue current medical management (6) CKD (chronic kidney disease) stage 3, GFR 30-59 ml/min: Plan: Stable. Monitor intake and output. Serial labs (7) Hypertension: Plan: Stable. Continue enalapril. Diuretic is currently on hold. I doubt if she actually needs the diuretic since she has no past history of congestive heart failure Plan SNF placement at either [facility] or [facility] when arrangements are finalized. She is medically stable for discharge. Admission and Anticipated Discharge Date Admission Date: September 19, 2024 Subjective Alert and oriented. No distress. Son is at the bedside. Prednisone taper down to twice daily dosing. Placement is pending at either [facility] or [facility]. She is medically stable for discharge. In my opinion, she does not require COVID isolation restrictions Review of Systems 2 Review of Systems: Constitutionalno fever or chills ENTno blurred vision, no double vision, no epistaxis, no sore throat Respiratoryno cough, no wheezing, no shortness of breath Cardiacno palpitations, no chest pain, no syncope Cherie nausea, vomiting, diarrhea, melena, hematochezia GUno urinary retention, no urinary incontinence, no dysuria, no hematuria Musculoskeletalno joint pain, no muscle tenderness Skinno bruising, no rashes, no pruritus Neurogeneralized weakness. Nothing focal Psychno depression, no anxiety Physical Exam 2 Physical Exam: General-alert and oriented x3, no fever, no chills HEENT-head atraumatic and normocephalic, pupils equal and reactive to light, extraocular muscles intact Neck-no lymphadenopathy or thyromegaly, trachea midline Chest-clear to auscultation. No rales, wheezing or rhonchi Cardiac-regular rate and rhythm, normal S1 and S2 Abdomen-normal bowel sounds, no hepatosplenomegaly Extremities-no cyanosis, clubbing, or edema Neuro-cranial nerves II through XII intact, motor and sensory function within normal limits, strength symmetrical with generalized weakness, no focal deficits Psych-flat affect Results & Data Results & Data Vital Signs (Past 12 Hours) Vital Signs Temp Pulse Pulse Resp BP BP Pulse Ox 09/23/24 08:00 09/23/24 07:46 36.4 C L 54 L 18 166/70 H 97 09/23/24 07:00 50 L 09/23/24 03:31 36.5 C 59 L 18 148/69 H 97 O2 Del Method 09/23/24 08:00 Room Air 09/23/24 07:46 Room Air 09/23/24 07:00 09/23/24 03:31 Room Air Laboratory Results 09/20/24 06:06 09/20/24 06:06 PG Care Time/CCT Total # of Minutes Spent Total Time Spent with Patient: Total time spent is greater than 50% in coordination of care (as documented) at patient's floor/unit and/or counseling patient: Coding Level of Care Code 03225 SUB INP/OBS CARE 2/35MIN Diagnoses Weakness R53.1 COVID-19 U07.1 Elevated troponin R79.89 Hypothyroidism E03.9 Parkinsonism G20.C CKD (chronic kidney disease) stage 3, GFR 30-59 ml/min N18.30 Hypertension I10
[2024-09-23] MEDS: predniSONE 10 MG TABLET PO SCH (20:21)
[2024-09-24 06:39] LABS: Basophils # (auto) 0.02 K/uL (0.00-0.20); Basophils % (auto) 0.3 %; Eosinophils # (auto) 0.17 K/uL (0.00-0.50); Eosinophils % (auto) 2.5 %; Hematocrit (blood only) 33.3 % (37.0-47.0); Hemoglobin 11.2 g/dl (12.0-16.0); Immature Granulocytes # (auto) 0.06 K/uL (0.01-0.20); Immature Granulocytes % (auto) 0.9 %; Lymphocytes # (auto) 1.47 K/uL (1.20-3.40); Lymphocytes % (auto) 21.2 %; Mean Corpuscular Hgb Conc 33.6 g/dL (32.0-36.0); Mean Corpuscular Volume 89.3 fL (80.0-100.0); Mean Platelet Volume 10.9 fL (9.4-12.4); Monocytes # (auto) 0.64 K/uL (0.11-0.59); Monocytes % (auto) 9.2 %; Neutrophils # (auto) 4.56 K/uL (1.40-6.50); Neutrophils % (auto) 65.9 %; Platelet Count 229 K/uL (130-400); RDW Coefficient of Variation 12.6 % (11.5-14.5); RDW Standard Deviation 41.1 fL (36.4-46.3); Red Blood Count 3.73 M/uL (4.20-5.40); White Blood Count 6.92 K/ul (4.8-10.8)
[2024-09-24 06:52] LABS: BUN Creatinine Ratio 32.5 (10-20); Calcium 8.4 mg/dl (8.6-10.3); Potassium 4.2 mmol/L (3.5-5.1)
--- NOTE | 2024-09-24 15:09 | Hospitalist Progress Note ---
Date of Service September 24, 2024 Assessment & Plan (1) Weakness: Plan: Much improved since admission. Continue OT and PT. Treating viral illness with steroid therapy. Oral prednisone dosage was tapered down on September 23. OT and PT recommends rehab placement at discharge. (2) COVID-19: Plan: Positivity by nasal swab. She has a viral illness but uncertain if it is actually a coronavirus or not. Continue steroid therapy . Prednisone oral tapering dose at discharge. In my opinion, she does not need isolation precautions (3) Elevated troponin: Plan: Cardiac echo reveals normal left ventricular wall motion and ejection fraction. No evidence of acute coronary syndrome. (4) Hypothyroidism: Plan: TSH mildly elevated on admission with normal free T4. Continue current levothyroxine dosage (5) Parkinsonism: Plan: Stable. Continue current medical management (6) CKD (chronic kidney disease) stage 3, GFR 30-59 ml/min: Plan: Stable. Monitor intake and output. Serial labs (7) Hypertension: Plan: Stable. Continue enalapril. Diuretic is currently on hold. I doubt if she actually needs the diuretic since she has no past history of congestive heart failure Plan SNF placement at [facility] early next week. She is medically stable for discharge. Admission and Anticipated Discharge Date Admission Date: September 19, 2024 Subjective Alert and oriented. No new problems. Case management notes indicate that she can go to [facility] early next week. Review of Systems 2 Review of Systems: Constitutionalno fever or chills ENTno blurred vision, no double vision, no epistaxis, no sore throat Respiratoryno cough, no wheezing, no shortness of breath Cardiacno palpitations, no chest pain, no syncope Cherie nausea, vomiting, diarrhea, melena, hematochezia GUno urinary retention, no urinary incontinence, no dysuria, no hematuria Musculoskeletalno joint pain, no muscle tenderness Skinno bruising, no rashes, no pruritus Neurogeneralized weakness. Nothing focal Psychno depression, no anxiety Physical Exam 2 Physical Exam: General-alert and oriented x3, no fever, no chills HEENT-head atraumatic and normocephalic, pupils equal and reactive to light, extraocular muscles intact Neck-no lymphadenopathy or thyromegaly, trachea midline Chest-clear to auscultation. No rales, wheezing or rhonchi Cardiac-regular rate and rhythm, normal S1 and S2 Abdomen-normal bowel sounds, no hepatosplenomegaly Extremities-no cyanosis, clubbing, or edema Neuro-cranial nerves II through XII intact, motor and sensory function within normal limits, strength symmetrical with generalized weakness, no focal deficits Psych-flat affect Results & Data Results & Data Vital Signs (Past 12 Hours) Vital Signs Temp Pulse Pulse Resp BP BP Pulse Ox 09/24/24 13:00 71 09/24/24 12:04 36.9 C 61 16 130/76 95 09/24/24 07:48 36.4 C L 64 18 168/72 H 94 09/24/24 07:03 62 O2 Del Method 09/24/24 13:00 09/24/24 12:04 Room Air 09/24/24 07:48 Room Air 09/24/24 07:03 Laboratory Results 09/24/24 06:14 09/24/24 06:14 PG Care Time/CCT Total # of Minutes Spent Total Time Spent with Patient: Total time spent is greater than 50% in coordination of care (as documented) at patient's floor/unit and/or counseling patient: Coding Level of Care Code 50604 SUB INP/OBS CARE 2/35MIN Diagnoses Weakness R53.1 COVID-19 U07.1 Elevated troponin R79.89 Hypothyroidism E03.9 Parkinsonism G20.C CKD (chronic kidney disease) stage 3, GFR 30-59 ml/min N18.30 Hypertension I10
[2024-09-24] MEDS: DOCUSATE SODIUM 100 MG CAP PO SCH (21:55)
--- NOTE | 2024-09-25 14:18 | Hospitalist Progress Note ---
Date of Service September 25, 2024 Assessment & Plan (1) Weakness: Plan: Much improved since admission. Continue OT and PT. Treating viral illness with steroid therapy. Oral prednisone dosage was tapered down on September 23. OT and PT recommends rehab placement at discharge. (2) COVID-19: Plan: Positivity by nasal swab. She has a viral illness but uncertain if it is actually a coronavirus or not. Continue steroid therapy . Prednisone oral tapering dose at discharge. In my opinion, she does not need isolation precautions (3) Elevated troponin: Plan: Cardiac echo reveals normal left ventricular wall motion and ejection fraction. No evidence of acute coronary syndrome. (4) Hypothyroidism: Plan: TSH mildly elevated on admission with normal free T4. Continue current levothyroxine dosage (5) Parkinsonism: Plan: Stable. Continue current medical management (6) CKD (chronic kidney disease) stage 3, GFR 30-59 ml/min: Plan: Stable. Monitor intake and output. Serial labs (7) Hypertension: Plan: Stable. Continue enalapril. Diuretic is currently on hold. I doubt if she actually needs the diuretic since she has no past history of congestive heart failure Plan SNF placement at [facility] hopefully tomorrow, September 26. She is medically stable for discharge. Admission and Anticipated Discharge Date Admission Date: September 19, 2024 Subjective Alert and oriented. No new problems. Awaiting SNF placement. She is stable Review of Systems 2 Review of Systems: Constitutionalno fever or chills ENTno blurred vision, no double vision, no epistaxis, no sore throat Respiratoryno cough, no wheezing, no shortness of breath Cardiacno palpitations, no chest pain, no syncope Cherie nausea, vomiting, diarrhea, melena, hematochezia GUno urinary retention, no urinary incontinence, no dysuria, no hematuria Musculoskeletalno joint pain, no muscle tenderness Skinno bruising, no rashes, no pruritus Neurogeneralized weakness. Nothing focal Psychno depression, no anxiety Physical Exam 2 Physical Exam: General-alert and oriented x3, no fever, no chills HEENT-head atraumatic and normocephalic, pupils equal and reactive to light, extraocular muscles intact Neck-no lymphadenopathy or thyromegaly, trachea midline Chest-clear to auscultation. No rales, wheezing or rhonchi Cardiac-regular rate and rhythm, normal S1 and S2 Abdomen-normal bowel sounds, no hepatosplenomegaly Extremities-no cyanosis, clubbing, or edema Neuro-cranial nerves II through XII intact, motor and sensory function within normal limits, strength symmetrical with generalized weakness, no focal deficits Psych-flat affect Results & Data Results & Data Vital Signs (Past 12 Hours) Vital Signs Temp Pulse Pulse Resp BP Pulse Ox O2 Del Method 09/25/24 13:34 69 09/25/24 11:31 37.1 C 70 16 124/73 94 Room Air 09/25/24 08:10 36.5 C 69 18 118/66 95 Room Air 09/25/24 05:34 62 09/25/24 03:29 36.3 C L 55 L 18 150/69 H 96 Room Air Laboratory Results 09/24/24 06:14 09/24/24 06:14 PG Care Time/CCT Total # of Minutes Spent Total Time Spent with Patient: Total time spent is greater than 50% in coordination of care (as documented) at patient's floor/unit and/or counseling patient: Coding Level of Care Code 22761 SUB INP/OBS CARE 2/35MIN Diagnoses Weakness R53.1 COVID-19 U07.1 Elevated troponin R79.89 Hypothyroidism E03.9 Parkinsonism G20.C CKD (chronic kidney disease) stage 3, GFR 30-59 ml/min N18.30 Hypertension I10
--- NOTE | 2024-09-26 17:49 | Hospitalist Progress Note ---
Date of Service September 26, 2024 Assessment & Plan (1) Weakness: Plan: 2/ COVID-19 Improved since admission but has not worked with PT/OT in 3 days over the weekend-needs placement, hopefully PT will come on Thursday (2) COVID-19: Plan: Symptoms of weakness, dizziness. Never hypoxic, CXR neg for PNA Did not receive Remdesevir, but has been on steroids--> no indication for further steroids-stop Supportive care, needs rehab Dizziness--> check orthostatics, could be vertigo? (3) Elevated troponin: Plan: Troponin elevated on admission at 368 and then decreased on serial trops ECHO w/ normal LVEF, no WMAs; ECG with LBBB, NSR, No evidence of acute coronary syndrome. No chest pain Secondary to myocardial demand ischemia in setting of COVID-19 acute infection (4) Hypothyroidism: Plan: TSH mildly elevated on admission with normal free T4. Continue current levothyroxine dosage FOllow as outpt (5) Parkinsonism: Plan: Stable. 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 Diuretic is currently on hold. I doubt if she actually needs the diuretic since she has no past history of congestive heart failure or edema Plan DVT proph-Lovenox Dispo-medically stable for dc, awaiting SNF insurance auth Discussed care with daughter Nel on phone on 09/26 Admission and Anticipated Discharge Date Admission Date: September 19, 2024 Subjective Pt has no complaints except fatigue, but her daughter tells me on the phone that pt has been complaining of dizziness since the day before her COVID sxs started. Pt denies cough, SOB, chest pain Tele with SB, SR rates 50-70s, PVCs Physical Exam Constitutional: WD/WN, vitals as above Respiratory: normal respiratory effort, lungs clear to auscultation Cardiovascular: RRR, no murmur, no edema Gastrointestinal (Abdomen): normal bowel sounds, soft, nontender, no hepatosplenomegaly Psychiatric: Orientation: alert, oriented to person and oriented to place Results & Data Results & Data Vital Signs (Past 12 Hours) Vital Signs Temp Pulse Pulse Resp BP Pulse Ox O2 Del Method 09/26/24 14:59 72 09/26/24 11:57 36.3 C L 65 18 121/57 L 98 Room Air 09/26/24 10:31 Room Air 09/26/24 08:37 36.3 C L 62 18 135/71 96 Room Air 09/26/24 08:00 69 Laboratory Results no labs for review PG Care Time/CCT Total # of Minutes Spent Total Time Spent with Patient: Total time spent is greater than 50% in coordination of care (as documented) at patient's floor/unit and/or counseling patient: Coding Level of Care Code 21919 SUB INP/OBS CARE 2/35MIN Diagnoses Weakness R53.1 COVID-19 U07.1 Elevated troponin R79.89 Hypothyroidism E03.9 Parkinsonism G20.C CKD (chronic kidney disease) stage 3, GFR 30-59 ml/min N18.30 Hypertension I10
[2024-09-27 06:24] LABS: Basophils # (auto) 0.03 K/uL (0.00-0.20); Basophils % (auto) 0.3 %; Eosinophils # (auto) 0.21 K/uL (0.00-0.50); Eosinophils % (auto) 2.2 %; Hematocrit (blood only) 34.9 % (37.0-47.0); Hemoglobin 11.8 g/dl (12.0-16.0); Immature Granulocytes # (auto) 0.11 K/uL (0.01-0.20); Immature Granulocytes % (auto) 1.2 %; Lymphocytes # (auto) 1.03 K/uL (1.20-3.40); Lymphocytes % (auto) 10.9 %; Mean Corpuscular Hemoglobin 30.1 pg (25.0-34.0); Mean Corpuscular Hgb Conc 33.8 g/dL (32.0-36.0); Mean Platelet Volume 11.2 fL (9.4-12.4); Monocytes # (auto) 0.73 K/uL (0.11-0.59); Monocytes % (auto) 7.8 %; Neutrophils % (auto) 77.6 %; Platelet Count 256 K/uL (130-400); RDW Coefficient of Variation 12.9 % (11.5-14.5); RDW Standard Deviation 42.1 fL (36.4-46.3); Red Blood Count 3.92 M/uL (4.20-5.40); White Blood Count 9.41 K/ul (4.8-10.8)
[2024-09-27 06:53] LABS: Albumin Globulin Ratio 1.3 (0.9-2); Albumin Level 3.6 gm/dl (3.4-5.0); BUN Creatinine Ratio 29.9 (10-20); Bilirubin,Total 0.3 mg/dl (0.2-1.0); Calcium 8.8 mg/dl (8.6-10.3); Creatinine Clr Calc Pharmacy 21.9 ml/min; Globulin 2.7 gm/dl (2.5-4.0); Magnesium 2.1 mg/dl (1.7-2.4); Potassium 5.1 mmol/L (3.5-5.1); Total Protein 6.3 gm/dl (6.0-8.3)
[2024-09-27] MEDS: SODIUM CHLORIDE 0.9% 500 ML IV SCH ×2 (11:16→16:50)
[2024-09-27] MEDS: MECLIZINE 12.5 MG TAB PO PRN (11:50)
--- NOTE | 2024-09-27 16:22 | Hospitalist Progress Note ---
Date of Service September 27, 2024 Assessment & Plan (1) Weakness: Plan: This pt is an 89 yo female with a h/o essential tremor, GERD, HTN, Anxiety, hypothyroidism, and CKD stage 3, here with generalized weakness 2/2 COVID-19 Improved since admission but needs placement (2) CKD (chronic kidney disease) stage 3, GFR 30-59 ml/min: Plan: BASIL on CKD stage 3--> gas controller up to 1.54 today, suspect poor po intake Holding home HCTZ and now will hold home enalapril With mild hyponatremia as well 132--> give 1 L NS at 125mL/hr check BMP in AM (3) COVID-19: Plan: Symptoms of weakness, dizziness. Never hypoxic, CXR neg for PNA Did not receive Remdesevir, but has been on steroids--> no indication for further steroids-stopped after several days Supportive care, needs rehab With vertigo likely related to COVID-started meclizine, hopefully improves with time, PT (4) Elevated troponin: Plan: Troponin elevated on admission at 368 and then decreased on serial trops ECHO w/ normal LVEF, no WMAs; ECG with LBBB, NSR, No evidence of acute coronary syndrome. No chest pain Secondary to myocardial demand ischemia in setting of COVID-19 acute infection Can downgrade off tele (5) Hypothyroidism: Plan: TSH mildly elevated on admission with normal free T4. Continue current levothyroxine dosage FOllow as outpt (6) Parkinsonism: Plan: Stable. Continue current medical management with primidone (7) Hypertension: Plan: BPs normal With BASIL, hold enalapril and HCTZ would not resume HCTZ on discharge given advanced age could use amlodipine if needed (8) Vertigo: Plan: trial of meclizine as above Plan DVT proph-Lovenox Dispo-medically stable for dc, awaiting SNF insurance auth, SNF bed at [facility] ready for tomorrow Discussed care with daughter Nel on phone on 09/26 and 09/27 Admission and Anticipated Discharge Date Admission Date: September 19, 2024 Subjective Pt c/o dizziness like room moving side to side. She worked with PT today and is OOB to chair for most of afternoon. Didn't eat lunch because she is tired of eating chicken. Denies SOB, cough, headache. She moved her bowels today. Tele with NSR rates 50-70s Physical Exam Constitutional: WD/WN, vitals as above Respiratory: normal respiratory effort, lungs clear to auscultation Cardiovascular: RRR, no murmur, no edema Gastrointestinal (Abdomen): normal bowel sounds, soft, nontender, no hepatosplenomegaly Psychiatric: Orientation: alert, oriented to person and oriented to place Results & Data Results & Data Vital Signs (Past 12 Hours) Vital Signs Temp Pulse Pulse Resp BP BP Pulse Ox 09/27/24 15:37 70 09/27/24 15:24 36.8 C 70 16 129/72 98 09/27/24 12:34 36.8 C 69 18 137/77 98 09/27/24 08:40 09/27/24 08:39 36.3 C L 77 16 147/78 H 96 09/27/24 07:28 59 L O2 Del Method 09/27/24 15:37 09/27/24 15:24 Room Air 09/27/24 12:34 Room Air 09/27/24 08:40 Room Air 09/27/24 08:39 Room Air 09/27/24 07:28 Laboratory Results CBC, CMP, magnesium reviewed PG Care Time/CCT Total # of Minutes Spent Total Time Spent with Patient: Total time spent is greater than 50% in coordination of care (as documented) at patient's floor/unit and/or counseling patient: Coding Level of Care Code 73135 SUB INP/OBS CARE 2/35MIN Diagnoses Weakness R53.1 CKD (chronic kidney disease) stage 3, GFR 30-59 ml/min N18.30 COVID-19 U07.1 Elevated troponin R79.89 Hypothyroidism E03.9 Parkinsonism G20.C Hypertension I10 Vertigo R42
[2024-09-27] MEDS: MECLIZINE HCL 25 MG TAB PO PRN (18:49)
[2024-09-28 06:14] LABS: Calcium 8.4 mg/dl (8.6-10.3); Creatinine Clr Calc Pharmacy 23.3 ml/min; Potassium 4.7 mmol/L (3.5-5.1)
[2024-09-28 07:13] VITALS: BP 178/67; PULSE 62; RESP 16; TEMP 97.5; O2SAT 98
--- NOTE | 2024-09-28 11:52 | Discharge Summary ---
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 Never hypoxic, CXR neg for PNA Did not receive Remdesevir, but has been on steroids--> no indication for further steroids-stopped after several days Supportive care, needs rehab With vertigo likely related to COVID-started meclizine,improved-can take meclizine prn (4) Elevated troponin: Troponin elevated on admission at 368 and then decreased on serial trops ECHO w/ normal LVEF, no WMAs; ECG with LBBB, NSR, No evidence of acute coronary syndrome. No chest pain Secondary to myocardial demand ischemia in setting of COVID-19 acute infection no events on tele (5) Hypothyroidism: TSH mildly elevated on admission with normal free T4. Continue current levothyroxine dosage FOllow as outpt (6) Parkinsonism: Stable. Continue current medical management with primidone (7) Hypertension: BPs normal With BASIL, holding enalapril and HCTZ would not resume HCTZ on discharge given advanced age could use amlodipine if needed resume enalapril next week if repeat director of accounts receivable improved to baseline (8) Vertigo: trial of meclizine as above Plan DVT proph-Lovenox Dispo-medically stable for dc Long Care Discussed care with daughter Nel on phone on 09/26 and 09/27 Notes For Next Care Provider Check BMP in 2-3 days Resume enalapril and Celebrex once renal function back to normal Medication Changes From Visit Hold enalapril Dc HCTZ Hold Celebrex Added meclizine prn Admission HPI Per Admitting Provider Patient is 89 y/o female with a PMHx of Parkinsons dz, CKD, hypothyroidism, htn. She presents today due to weakness. She was found to be COVID positive and has an elevated troponin but low concern for ACS at this time. Is being admitting for ambulatory dysfunction and cardiac monitoring. Patient seen at bedside, lethargic. She responds to verbal stimuli. She stated that she has felt weak since last night, she cannot get out of her recliner this morning. She denies any falls. She stated she has also been dizzy since last night. She also endorses sore throat since yesterday. She does feel fatigued today. She denies any chest pain. Patient denies fever, chills, rhinorrhea, cough, sputum production, dyspnea, dyspnea on exertion, chest pain, abdominal pain, nausea, vomiting, diarrhea. She states she does not regularly exercise. She denies nicotine use. She denies past medical history of diabetes, previous VTE, previous MA. She lives at home with her son. She stated she cannot remember if she took her home medications this morning. She wishes to be full code at this time. Spoke with patient's son on the phone, he will be coming in this afternoon. He stated he has noticed that she has been sick for couple days and suspected something is going on. She did take a home COVID test yesterday which was negative. He stated he believes she did not take her home medications last night or this morning. Discharge Exam Constitutional WD/WN, vitals as above Respiratory normal respiratory effort, lungs clear to auscultation Cardiovascular RRR, no murmur, no edema Gastrointestinal (Abdomen) normal bowel sounds, soft, nontender, no hepatosplenomegaly Psychiatric Orientation: alert, oriented to person and oriented to place Discharge Plan Discharge Items Patient Disposition: Transfer Care Home Fac Reason For Visit: WEAKNESS, COVID, ELEVATED TROPONIN Discharge Diagnosis: Generalized weakness COVID-19 Vertigo BASIL Condition on Discharge: Fair Activity: As commented below Lifting: Gradually increase as tolerated Bathing: No limitations Exercise/Sports: Gradually increase as tolerated Non-emergency contact: Primary Care Provider Call non-emergency contact if: you have any medication questions and your symptoms worsen Follow-up/Referrals: Taqueria Cazares CRNP [Primary Care Provider] - Diet: Heart Healthy Addtl Attending Provider Instructions: You were admitted for COVID-19 causing weakness. You had some mild dehydration and your HCTZ and enalapril will be held for now. Please check a BMP in 2-3 days to ensure renal function is back to baseline. You can take meclizine as needed for the vertigo. Pending Studies at Discharge: No Stand-Alone Forms: My [facility] Skilled Items Patient informed of condition?: Yes DNR: No Discharge Level of Care: Skilled Communicable Disease: Yes (COVID) Discharge Prognosis: Improving Lines: None Urinary Catheter: No Medications and DC Order Prescriptions: New docusate sodium 100 mg Capsule 100 mg PO BID Qty: 60 0RF meclizine 25 mg Tablet 25 mg PO Q6H PRN (Reason: dizziness) Qty: 10 0RF Continued pantoprazole 20 mg tablet,delayed release (DR/EC) 20 mg PO DAILY Qty: 90 3RF aspirin 81 mg tablet 81 mg PO DAILY primidone 50 mg tablet 50 mg PO BID 90 Days Qty: 180 3RF levothyroxine 75 mcg tablet 75 mcg PO UD Rx Instructions: 1 tab 4 days and 1/2 tab 3 days cholecalciferol (vitamin D3) 50 mcg (2,000 unit) capsule 50 mcg PO UD Rx Instructions: pt didnt seem to sure if she still takes vitamin D, last filled for 90 day supply on 07/22/24 Held enalapril maleate 5 mg tablet 5 mg PO DAILY Qty: 90 3RF Hold Instructions: Resume on 10/03/24. celecoxib [Celebrex] 200 mg capsule 200 mg PO DAILY Qty: 90 3RF Hold Instructions: Resume on 10/03/24. Discontinued hydrochlorothiazide 12.5 mg tablet 12.5 mg PO DAILY Qty: 90 3RF Discharge Orders: Discharge Order (Routine); Ordered 09/28/24 Ordered By: Tatianna Pfeiffer Admission Data Admit Date/Time: 09/19/24 13:00 Attending Provider: Tatianna Pfeiffer Admit Provider: Aamir Handy Primary Care Provider: Taqueria Cazares Other Providers: Aamir Handy; Sayra Pradhan [facility] Stay Data Consultations 09/19/24 11:59 ED Decision to Admit Stat Diagnostic Imagining Performed 09/19/24 09:45 CT head/brain wo con Stat Pending Results Patient Have Any Pending Studies at Discharge: No Discharge Instructions Given to Patient (Per Discharging Provider) You were admitted for COVID-19 causing weakness. You had some mild dehydration and your HCTZ and enalapril will be held for now. Please check a BMP in 2-3 days to ensure renal function is back to baseline. You can take meclizine as needed for the vertigo. Total Time Total Time Spent Total Time Spent (In Minutes): 35 min Total Time Includes: Examination of the Patient, Discharge Planning and Medication Reconciliation Coding Level of Care Code 90284 INP/OBS DISCH >30 MIN Diagnoses Weakness R53.1 CKD (chronic kidney disease) stage 3, GFR 30-59 ml/min N18.30 COVID-19 U07.1 Elevated troponin R79.89 Hypothyroidism E03.9 Parkinsonism G20.C Hypertension I10 Vertigo R42
== END 2024-09-28 14:54 | DRG 178 ==
LOC: ED 09:38 → SUATTDRO 13:00 → EDINP 13:00 → 2W 09-20 14:39